=== PATIENT | female | born 1995 | race Caucasian/White ===

== ENCOUNTER 2019-01-07 11:55 | Emergency (ER) | payer OTHER ==
[2019-01-07 14:54] LABS: Pregnancy Test - Urine (BHCG) Negative (Negative); Pregu Control Background? CLEAR/WHITE (CLR/WHITE); Pregu Control Bar Appear? YES (CONTROL BAR); Specific Gravity 1.013 (1.002-1.036)
[2019-01-07] MEDS ORDERED: ISOVUE-370 76%-LOCM 1 ML ONE (15:21)
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
[2019-01-07] MEDS ORDERED: Acetaminophen 325 MG TAB ONE (16:05)
== END 2019-01-07 16:28 | disposition home or self-care (01) ==
LOC: ERS 11:55
DX: R10.9 Unspecified abdominal pain (principal); M25.562 Pain in left knee; M25.531 Pain in right wrist; Z79.899 Other long term (current) drug therapy; V43.52XA Car driver injured in collision with other type car in traffic accident, initial encounter
CPT/HCPCS: 74177; 81025; Q9966

== ENCOUNTER 2019-07-12 17:22 | Emergency (ER) | payer OTHER ==
[2019-07-12 18:05] LABS: #Eosinphils 0.1 thou/uL (0.0-0.7); #Lymphocytes 2.6 thou/uL (1.20-3.40); #Monocytes 0.4 thou/uL (0.11-0.59); #Neutrophils 3.1 thou/uL (1.40-6.50); %Basophils 0.6 % (0.0-1.0); %Eosinophils 0.9 % (0.0-10.0); %Neutrophils 50.5 % (42.0-75.0); Hemoglobin 14.4 g/dL (12.0-16.0); Mean Corpuscular Hemoglobin 31.5 pg (27.0-31.0); Mean Platelet Volume 6.6 fL (7.4-10.4); Platelet Count 291 thou/uL (130-400); Red Blood Cell (RBC) Count 4.58 mill/uL (4.20-5.40); White Blood Cell (WBC) Count 6.2 thou/uL (4.8-10.8)
[2019-07-12 18:11] LABS: BHCG - Serum Negative (NEGATIVE); Pregs Control Background? CLEAR/WHITE (CLR/WHITE); Pregs Control Bar Appear? YES (CONTROL BAR)
[2019-07-12 18:16] LABS: Bilirubin Negative (Negative); Blood, Urine Trace (Negative); Clarity Clear (Clear); Glucose, Urine (Dipstick) Normal (Negative); Leukocyte Negative Leu/uL (Negative); Nitrite Negative (Negative); Protein, Urine (Dipstick) 30 mg/dL (Neg-Trace); Urobilinogen Normal mg/dL (Less than 2)
[2019-07-12 18:21] LABS: Bacteria/HPF None Seen HPF (None Seen); RBC/HPF 0-3 HPF (0-3); Squamous Epithelial 0-3 HPF (0-3); WBC/HPF 0-3 HPF (0-3)
[2019-07-12 18:36] LABS: ALT (SGPT) 23 U/L (8-55); AST (SGOT) 23 U/L (5-34); Albumin 4.5 g/dL (3.5-5.0); Alkaline Phosphatase 59 U/L (40-110); Anion Gap 11 mmol/L (10-20); BUN (Urea Nitrogen) 11 mg/dL (7.0-18.7); Bilirubin, Total 0.4 mg/dL (0.2-1.2); Calc. Creatinine Clearance 0 mL/min (70-130); Calcium 9.5 mg/dL (7.8-10.44); Carbon Dioxide 25 mmol/L (22-29); Chloride 104 mmol/L (98-107); Estimated GFR-MDRD 87; Globulin 3.1 g/dL (2.4-3.5); Glucose 94 mg/dL (70-105); Lipase 22 U/L (8-78); Potassium 3.8 mmol/L (3.5-5.1); Protein, Total 7.6 g/dL (6.0-8.3); Sodium 136 mmol/L (136-145)
--- NOTE | 2019-07-12 20:23 | CT ---
CT Abdomen Pelvis W Con History: Abdominal pain Comparison: CT abdomen and pelvis January 2019 Findings: Lung bases are clear. No pericardial effusion. The appendix is visualized and is normal. No significant free fluid within the abdomen or pelvis. No dilated loops of large or small bowel. Normal proximal small bowel rotation. Spleen is unremarkable as well as the adrenal glands. No hydron ephrosis. Bilateral L5 pars interarticularis defects with grade 1 anterolisthesis. Impression: No acute inflammatory process within the abdomen or pelvis. Normal appendix.
== END 2019-07-12 21:06 | disposition home or self-care (01) ==
LOC: ERS 17:22
DX: R10.9 Unspecified abdominal pain (principal); R51 Headache; R11.0 Nausea
CPT/HCPCS: 74177; 80053; 81003; 81015; 83690; 84703; 85025